=== PATIENT | female | born 1990 ===

== ENCOUNTER 2018-03-24 13:24 | Emergency (ER) | payer SELFPAY ==
[2018-03-24 13:44] VITALS: PULSE 76; TEMP 98.1
[2018-03-24 14:10] LABS: HCG,QUALITATIVE URINE POSITIVE (NEGATIVE)
[2018-03-24 14:13] LABS: SQUAMOUS EPITHIAL 1 /hpf (0-5); URINE AMORPHOUS SEDIMENT RARE /ul (<OCC); URINE BILIRUBIN NEGATIVE (NEGATIVE); URINE BLOOD 2+ (NEGATIVE); URINE CLARITY Hazy (Clear); URINE COLOR Yellow (YELLOW); URINE GLUCOSE (UA) NORMAL (Normal); URINE LEUKOCYTE ESTERASE NEG Leu/uL (Negative); URINE PROTEIN NEGATIVE (NEGATIVE); URINE UROBILINOGEN NORMAL mg/dL (0.2-1.0)
[2018-03-24] MEDS: Sodium Chloride 0.9% 1,000 ML IV ONE (14:40)
--- NOTE | 2018-03-24 15:11 | C.PDOC ---
History Of Present Illness 27 yo female G1P), LNMP 12/07/17, come in for evaluation of diffuse lower abdominal cramping pain radiating to lower back gradually developed for past few days associated with scant bloody discharge. Pt also reports, (+) nausea, inte rmittent vomiting for past few weeks. Pt reports, (+) care. Pt denies high fever, chills, recent illness, CP, SOB, dyspnea, palpitation, hematemesis, diarrhea, hematuria, denies previous hx of ectopic . Ambulatory, not in any apparent distress. Time Seen by Provider: 03/24/18 14:04 Chief Complaint (Nursing): Abdominal Pain History Per: Patient Past Medical History Reviewed: Historical Data, Nursing Documentation, Vital Signs Vital Signs: Last Vital Signs Temp 98.1 F 03/24/18 13:41 Pulse 76 03/24/18 13:41 Resp 16 03/24/18 13:41 BP 114/75 03/24/18 13:41 Pulse Ox 100 03/24/18 13:41 - Medical History PMH: No Chronic Diseases Family History: States: No Known Family Hx - Social History Hx Tobacco Use: No Hx Alcohol Use: No Hx Substance Use: No - Immunization History Hx Tetanus Toxoid Vaccination: No Hx Influenza Vaccination: No Hx Pneumococcal Vaccination: No Review Of Systems Except As Marked, All Systems Reviewed And Found Negative. Constitutional: Negative for: Fever, Chills ENT: Negative for: Throat Pain Cardiovascular: Negative for: Chest Pain, Palpitations Respiratory: Negative for: Shortness of Breath Gastrointestinal: Positive for: Nausea, Vomiting, Abdominal Pain. Negative for: Diarrhea, Melena, Hematochezia, Hematemesis Genitourinary: Positive for: Dysuria, Vaginal Bleeding. Negative for: Frequency, Incontinence, Vaginal Discharge Musculoskeletal: Positive for: Other (flank pain) Skin: Negative for: Rash Neurological: Negative for: Weakness, Numbness Physical Exam - Physical Exam Appears: Well, Non-toxic, No Acute Distress Skin: Normal Color, Warm, Dry Head: Normacephalic Eye(s): bilateral: PERRL Nose: No Flaring Oral Mucosa: Moist Throat: Normal Neck: Normal Cardiovascular: Rhythm Regular, No Murmur, No JVD Respiratory: No Decreased Breath Sounds, No Accessory Muscle Use, No Stridor, No Wheezing Gastrointestinal/Abdominal: Soft, Tenderness (mild suprapubic tenderness), No Distention, No Guarding, No Rebound Back: No CVA Tenderness, No Vertebral Tenderness, Paraspinal Tenderness (diffuse lower lumbar paraspinal) Extremity: Normal ROM, No Calf Tenderness, No Swelling Neurological/Psych: Oriented x3, Normal Speech ED Course And Treatment - Laboratory Results Result Diagrams: 03/24/18 15:14 03/24/18 15:14 Lab Results: Urine Color Yellow (YELLOW) 03/24/18 14:00 Urine Clarity Hazy (Clear) 03/24/18 14:00 Urine pH 7.0 (5.0-8.0) 03/24/18 14:00 Ur Specific [place] 1.014 (1.003-1.030) 03/24/18 14:00 Urine Protein Negative mg/dL (NEGATIVE) 03/24/18 14:00 Urine Glucose (UA) Normal mg/dL (Normal) 03/24/18 14:00 Urine Ketones Negative mg/dL (NEGATIVE) 03/24/18 14:00 Urine Blood 2+ (NEGATIVE) H 03/24/18 14:00 Urine Nitrate Negative (NEGATIVE) 03/24/18 14:00 Urine Bilirubin Negative (NEGATIVE) 03/24/18 14:00 Urine Urobilinogen Normal mg/dL (0.2-1.0) 03/24/18 14:00 Ur Leukocyte Esterase Neg [place]/uL (Negative) 03/24/18 14:00 Urine WBC (Auto) 2 /hpf (0-5) 03/24/18 14:00 Urine RBC (Auto) 7 /hpf (0-3) H 03/24/18 14:00 Ur Squamous Epith Cells 1 /hpf (0-5) 03/24/18 14:00 Amorphous Sediment Rare /ul (<OCC) H 03/24/18 14:00 Urine HCG, Qual Positive (NEGATIVE) 03/24/18 14:00 Urine HCG, Qual Positive (NEGATIVE) 03/24/18 14:00 Lab Interpretation: No Acute Changes Urine POC: Positive O2 Sat by Pulse Oximetry: 100 Pulse Ox Interpretation: Normal - CT Scan/US OB US Other Rad Studies (CT/US): Radiology Report Reviewed CT/US Interpretation: Impression: Live single intrauterine with estimated gestational age 10 weeks 4 days by gestational sac calculation and 11 weeks 4 days by crown-rump. heart rate 163 bpm. Advise an anomaly screen at 16-18 weeks gestational age Progress Note: Pt was OBS in ED for 3 hrs and appears stable. On re-eval, pt is afebrile, hemodynamicaly stable. Non-toxic. Neck: Supple, (-) meningeal sign. Lungs: CTA B/L, BS equal B/L. CVS: (+)S1S2, reg. Abd: benign, (-) guarding, (- ) rebound, (-) localized tenderness. back: (-) CVA tenderness. Blood work review and appears normal. UA- normal study. OB US- Single IU , 10w4d, FHR 163/min, no acute abnormalities, beta quant 100,000 and c/w US r esults. Blood type: B positive. Results review and discussed with pt. Pt has clinical findings c/w threatened miscarriage. Pt advised. ref. to F/u with OB or ED in 2 days for re-eval. Return to ED if any worsening or new changes Disposition Counseled Patient/Family Regarding: Studies Performed, Diagnosis, Need For Followup, Rx Given - [facility]position [facility] Disposition: HOME/ ROUTINE Disposition Time: 16:20 Condition: STABLE Additional Instructions: Encourage fluids " Pelvic rest" for 1 week, avoid heavy lifting, sexual activity for 1week or until cleared by OB return to ED or follow up with OB in 2 days for re-evaluation and repeat beta quant return to Ed at any time if any worsening or new changes. Instructions: Threatened Miscarriage Forms: [employer] (Tajik) Print Language: SAMOAN - Clinical Impression Clinical Impression: Threatened miscarriage
[2018-03-24 15:18] LABS: BASO % 0.7 % (0.0-2.0); EOS % 0.5 % (0.0-4.0); HEMOGLOBIN 12.9 g/dL (11.0-16.0); LYMPH % 35.7 % (20.0-40.0); MEAN CELL VOLUME 78.2 fL (81.0-99.0); MEAN CORPUSCULAR HEMOGLOBIN 25.9 pg (27.0-31.0); MEAN CORPUSCULAR HGB CONC 33.2 g/dL (33.0-37.0); MEAN PLATELET VOLUME 7.4 fL (7.2-11.7); MONO # 0.4 K/uL (0.0-0.8); MONO % 6.3 % (0.0-10.0); NEUT # 3.2 K/uL (1.8-7.0); NEUT % 56.8 % (50.0-75.0); RBC 4.96 Mil/uL (3.80-5.20); RED CELL DISTRIBUTION WIDTH 14.4 % (11.5-14.5); WHITE BLOOD COUNT 5.6 K/uL (4.8-10.8)
[2018-03-24 15:40] LABS: ALB/GLOB RATIO 1.3 (1.0-2.1); ALBUMIN 4.2 g/dL (3.5-5.0); ALT/SGPT 21 U/L (9-52); AST/SGOT 24 U/L (14-36); BLOOD UREA NITROGEN 7 mg/dL (7-17); CALCIUM 9.3 mg/dl (8.6-10.4); GFR NON-AFRICAN AMERICAN > 60
--- NOTE | 2018-03-24 16:48 | US ---
Indication: vag bleeding, abd pain Comparison: Transvaginal pelvic ultrasound performed 08/20/14 Technique: Transabdominal pelvic ultrasound Findings: The uterus measures approximately 11.1 x 6.7 x 8.3 cm. Anteverted. Cervix length measures approximately 3.2 cm. There is a single intrauterine fetus present. 4 mm yolk sac. The gestational sac measures 4.8 cm and is compatible with a gestational age of 10 weeks 4 days. The crown-rump length measures 4.7 cm and is compatible with a gestational age of 11 weeks 4 days. There is heart motion which measured 163 BPM. The right ovary measures 3.2 x 1.8 x 3.6 cm. The left ovary measures 3.9 x 3.4 x 2.5 cm. 1.7 cm left ovarian cyst. Blood flow was demonstrated to both ovaries. Impression: Live single intrauterine with estimated gestational age 10 weeks 4 days by gestational sac calculation and 11 weeks 4 days by crown-rump. heart rate 163 bpm. Advise an anomaly screen at 16-18 weeks gestational age
[2018-03-24 17:24] VITALS: BP 112/76; RESP 18
[2018-03-24 17:44] VITALS: O2SAT 100
== END 2018-03-24 17:24 | disposition home or self-care (01) ==
LOC: C.ER 13:24
DX: O20.0 Threatened abortion (principal); Z3A.11 11 weeks gestation of pregnancy
CPT/HCPCS: 76801; 80053; 81001; 84702; 84703; 85025; 86850; 86900; 96361; 96374; 99285; J2405; J7030